=== PATIENT | female | born 1960 | race Caucasian/White ===

== ENCOUNTER 2024-07-07 00:57 | Day surgery (SDC) | payer BC, SELFPAY ==
[2024-06-27 13:28] VITALS: BMI 25.2
--- OUTSIDE RECORDS SUMMARY | 2024-07-07 01:00 | XMS_ITS | Clinical Summary ---
Author Organization [facility] Address [address] [place] [phone] Care Team Providers Care Regional Account Director Name Role Phone Manuelito Delgadillo MD Primary Care Provider [phone] Allergies No known active allergies Medications losartan (COZAAR) 100 mg tabletIndicatio ns:hypertension Take 1 tablet (100 mg total) by mouth nightly 4 8 Active multivitamin capsuleIndicati ons:Vitamin Deficiency Prevention Take 1 capsule by mouth nightly Active rosuvastatin (CRESTOR) 10 mg tabletIndicatio ns:hyperlipidem ia Take 1 tablet (10 mg total) by mouth nightly 3 Active timolol (TIMOPTIC) 0.5 % ophthalmic solution Administer 1 drop into both eyes 2 (two) times a day 5 Active brimonidine (ALPHAGAN) 0.2 % ophthalmic solution Administer 1 drop into the left eye 2 (two) times a day 5 mL 11 5 12/11/19 25 Active Hospital, Clinic, or Other Facility Administered Medication Ordered Dose Route Frequency Start Date End Date Status aflibercept syringe (EYLEA HD) 8 mg/0.07 mL intra-ocular injection 8 mgIndications:Left retinal detachment 8 mg One-Time Injection 07/01/2024 07/01/2024 Ended Active Problems Problem Noted Date Diagnosed Date Neovascular glaucoma of left eye, indeterminate stage 07/02/2024 Assessment & Plan (07/02/2024 10:51 AM CDT): Likely from retinal ischemia from RD. Will proceed with antiVEGF again today Left retinal detachment 01/16/2024 Assessment & Plan (07/01/2024 2:40 PM CDT): s/p PPV/EL/FAx/gas left eye for RRD OS. Re-detached with temporal PVR with subretinal bands Now s/p SBP/PPV/MP/EL/FAx/MTX inj/1000cs oil 03/20/24 C/b NVI and IOP issues in the left eye. Improved with antiVEGF and topical drops. Today NVI persists will plan for repeat MOSHE OS. For now will continue IOP lowering drops Assessment & Plan (06/13/2024 1:18 PM CONSTRUCTION RECRUITER): s/p PPV/EL/FAx/gas left eye for RRD OS. Re-detached with temporal PVR with subretinal bands Now s/p SBP/PPV/MP/EL/FAx/MTX inj/1000cs oil 03/20/24 Here for IOP check following new NVI last visit. Improved with antiVEGF and timolol but will add brimonidine BID OS as well. Assessment & Plan (06/04/2024 12:41 PM CONSTRUCTION RECRUITER): s/p PPV/EL/FAx/gas left eye for RRD OS. Re-detached with temporal PVR with subretinal bands Now s/p SBP/PPV/MP/EL/FAx/MTX inj/1000cs oil 03/20/24 Good buckle effect; attached with some PVR membranes still but remains flat. IOP elevated with diffuse NVI today likely from chronic ischemia from RRD. Will plan for RODRIGUEZ OS today. Will have her use timolol BID in both eyes (just using once a day in the right) and see someone locally in 1 week for IOP check and retina in 4 weeks if doing well. Assessment & Plan (04/23/2024 1:25 PM CONSTRUCTION RECRUITER): s/p PPV/EL/FAx/gas left eye for RRD OS. Re-detached with temporal PVR with subretinal bands Now s/p SBP/PPV/MP/EL/FAx/MTX inj/1000cs oil 03/20/24 Doing well today. Good buckle effect; attached with some PVR membranes still but remains flat. Remain off drops. Positioning: avoid flat face up Return precautions discussed. RTC 6-8 weeks for DFE OS, OCT mac OS Assessment & Plan (03/26/2024 11:14 AM CONSTRUCTION RECRUITER): s/p PPV/EL/FAx/gas left eye for RRD OS. Re-detached with temporal PVR with subretinal bands Now s/p SBP/PPV/MP/EL/FAx/MTX inj/1000cs oil 03/20/24 Doing well today. Good buckle effect Stop abx drop, PF BID until out Positioning: avoid flat face up Return precautions discussed. RTC 3-4 weeks for DFE OS Assessment & Plan (03/21/2024 10:12 AM CONSTRUCTION RECRUITER): s/p PPV/EL/FAx/gas left eye for RRD OS. Re-detached with temporal PVR with subretinal bands Now s/p SBP/PPV/MP/EL/FAx/MTX inj/1000cs oil 03/20/24 Doing well today. PF/moxi QID OS Face down Return precautions discussed. RTC next week for DFE OS Assessment & Plan (03/10/2024 3:00 PM CONSTRUCTION RECRUITER): POW6 s/p PPV/EL/FAx/gas left eye for RRD OS. Previously had 360 PRP (by Dr. Muñoz). Today with some temporal PVR and stretch hole in the left eye. We discussed guarded visual prognosis. Will plan for surgery as below: PPV/MP/EL/FAx/likely SOi left eye 120 min A. Barraza/Harjeet She has some posterior PVR but discussed possible SBP and will re-evaluate day of surgery. She is pseudophakic as well. Assessment & Plan (02/25/2024 12:52 PM CONSTRUCTION RECRUITER): 39 days (01/17/2024) status post Vitrectomy - 25 Gauge - Left, Endolaser - Intraocular - Left, and Exchange Gas Fluid - Left. for mac-on RRD Intra-op findings with posterior vitreous insertion. Inferior tear near prior laser, two SN tears. Doing well. Will stop PF OS. Continue timolol OD. Return to clinic in 2 months. Signs and symptoms of retinal detachment, tears and endophthalmitis, elevated pressure reviewed with patient. Post Op Position: no longer necessary Altitude precautions were reviewed with patient. Ok to resume normal activity level Assessment & Plan (01/23/2024 1:45 PM CDT): 6 days (01/17/2024) status post Vitrectomy - 25 Gauge - Left, Endolaser - Intraocular - Left, and Exchange Gas Fluid - Left. for mac-on RRD Intra-op findings with posterior vitreous insertion. Inferior tear near prior laser, two SN tears. Doing well. Stop Tobramycin and Taper pred forte (PF) by reducing it by one drop a day each week Return to clinic in one month. Signs and symptoms of retinal detachment, tears and endophthalmitis, elevated pressure reviewed with patient. Post Op Position: no longer necessary Altitude precautions were reviewed with patient. Ok to resume normal activity level Assessment & Plan (01/18/2024 9:10 AM CDT): 1 days (01/17/2024) status post Vitrectomy - 25 Gauge - Left, Endolaser - Intraocular - Left, and Exchange Gas Fluid - Left. for mac-on RRD Intra-op findings with posterior vitreous insertion. Inferior tear near prior laser, two SN tears. Doing well. Shield operated eye, Tobramycin 4x/day, and Predforte 4x/day Return to clinic in one week. Signs and symptoms of retinal detachment, tears and endophthalmitis, elevated pressure reviewed with patient. Post Op Position: Face down or left side down Altitude precautions were reviewed with patient. No strenuous activity. Assessment & Plan (01/16/2024 12:36 PM CDT): Hx of prior RRD OD, now with macula-involving, fovea sparing RRD OS. Pseudophakic. Discussed r/b/a of surgery and will plan for: PPV/EL/FAx/gas versus oil, left eye 120 min MAC Will plan for surgery tomorrow. Right retinal detachment 01/16/2024 Assessment & Plan (01/16/2024 12:38 PM CDT): Repaired 3 years prior. Has had OHTN it sounds like recently. For now, will start her on timolol BID OD Multinodular goiter 05/08/2017 Assessment & Plan (06/13/2022 1:10 PM CONSTRUCTION RECRUITER): Thyroid ultrasound performed today See report Follow-up p.r.n. Assessment & Plan (11/06/2017 12:06 PM CDT): Ultrasound performed ( see report ) Follow up in a year. Assessment & Plan (05/08/2017 4:24 PM CONSTRUCTION RECRUITER): Ultrasound repeated See report Repeat Ultrasound / FNA in 6 m Thyroid nodule 10/10/2016 Assessment & Plan (12/17/2018 4:56 PM CDT): Enlargement of the right dominant nodule as per ultrasound done today FNA repeated recommended and performed If negative, will follow-up in 2 years If positive will refer for thyroidectomy Assessment & Plan (10/10/2016 5:04 PM CDT): Thyroid ultrasound FNA biopsy of right upper lobe Check TSH Encounters Date Type Department Care Team Description 07/02/2024 Telephone [facility] [address] [place] [phone] Marii John MD PhD Pre Cert (2024 Pre-Cert/Assistance Program (Inj)) 07/01/2024 1:10 PM CDT Office Visit [facility] [address] [place] [phone] Left retinal detachment (Primary Dx); Neovascular glaucoma of left eye, indeterminate stage 06/13/2024 12:40 PM CONSTRUCTION RECRUITER Office Visit [facility] [address] [place] [phone] Left retinal detachment (Primary Dx) 06/09/2024 Telephone [facility] [address] [place], [place] [phone] Sammy Barraza MD Scheduling Question 06/04/2024 12:00 PM CONSTRUCTION RECRUITER Office Visit [facility] [address] [phone] Left retinal detachment (Primary Dx) 04/23/2024 12:50 PM CONSTRUCTION RECRUITER Office Visit [facility] [address] [phone] Left retinal detachment (Primary Dx) from Last 3 Months Immunizations Immunization Administration Dates Next Due Influenza, Quadrivalent, Spl it, Intramuscular 03/05/2019 Influenza, Quadrivalent, Spl it, Preservative Free, Intramuscular 01/18/2023,02/06/2022,01/30/2020,02/20 Tdap 10/18/2018 Surgical History Surgery Date Site/Laterality Comments VITRECTOMY 01/17/2024 Left PPV/EL/FGE COLONOSCOPY last one 10/23/2018 VITRECTOMY 02/09/2021 Right retina detachment CATARACT EXTRACTION W/ INTRAOCULAR LENS IMPLANT 08/14/2022 - 09/13/2022 Bilateral MELANOMA RESECTION 04/16/2011 - 04/15/2012 Left SECTION x3, 1986, 1988, 1997 VITRECTOMY 03/20/2024 Left SBP/PPV/EL/FGE/methoxate inj Medical History Medical History Date Comments Hx Other Medical Not Claustropho bic; Comments: GFC 01/15/2014 - Hx Other Medical Malignant melan cassie, left leg , stage IA Retinal detachment Cataract Family History Medical History Relation Name Comments Thyroid disease Mother Thyroid diso rder; Relation Name Status Comments Mother Social History Tobacco Use Types Packs/Day Years Used Date Smoking Tobacco: Never Passive Smoke Exposure: Past Smokeless Tobacco: Never Tobacco Cessation:Counseling Given: Not Answered Alcohol Use Standard Drinks/Week Comments Yes 0 (1 standard drink = 0.6 oz pur e alcohol) AUDIT-C Answer Date Recorded Q1: How often do you have a drink containing alc ohol? 2-4 times a month 03/20/2024 Q2: How many drinks containi ng alcohol do you have on a typical day when you are drinking? 3 or 4 03/20/2024 Q3: How often do you have si x or more drinks on one occasion? Never 03/20/2024 PHQ-2 Answer Date Recorded PHQ-2 Score 0 12/17/2018 Personal Safety Answer Date Recorded Have you ever been in or are you currently in a harmful physical or emotional relationship or is someone making you feel afraid or unsafe? Denies 03/20/2024 Comments Unknown Sex and Gender Information Value Date Recorded Sex Assigned at Not on file Legal Sex Female 3:26 AM CONSTRUCTION RECRUITER Gender Identity Not on file Sexual Orientation Not on file Obstetrics History Last Filed Vital Signs Vital Sign Reading Time Taken Comments Blood Pressure 125/95 03/20/2024 12:00 PM CONSTRUCTION RECRUITER Pulse 79 03/20/2024 12:10 PM CONSTRUCTION RECRUITER Temperature 36.1 C (97 F) 03/20/2024 11:55 AM CONSTRUCTION RECRUITER Respiratory Rate 18 03/20/2024 12:10 PM CONSTRUCTION RECRUITER Oxygen Saturation 96% 03/20/2024 12:10 PM CONSTRUCTION RECRUITER Inhaled Oxygen Concentration - - Weight 69.4 kg (153 lb) 03/20/2024 8:14 AM CONSTRUCTION RECRUITER Height 167.6 cm (5' 6 ) 03/20/2024 8:14 AM CONSTRUCTION RECRUITER Body Mass Index 24.69 03/20/2024 8:14 AM CONSTRUCTION RECRUITER Plan of Treatment Health Maintenance Due Date Last Done Comments Breast Cancer Screening-Mammogram 1960 Cervical Cancer Screening 1960 Colon Cancer Screening-Colonoscopy 1960 Hepatitis C Screening 1960 Hepatitis B Screening 02/03/1978 Regular Well Visit/Exam 18-64 02/03/1978 Zoster Vaccine (1 of 2) 02/03/2010 Depression Screening 12/18/2019 12/17/2018, 11/06/2017, 05/08/2017, Additional history exists Covid-19 Vaccine ( season) 2023 04/18/2021, 06/20/2020 Influenza Vaccine (#1) 2023 3, 02/06/2022, 01/30/2020, Additional history exists DTaP/Tdap/Td Vaccine (2 - Td or Tdap) 10/18/2028 10/18/2018 Pneumococcal vaccine <65 Aged Out No longer eligible based on patient's age to complete this topic Medical Devices Implanted Type Area Plasma Processor Device Identifier Shelf Expiration Date Model / Serial / Lot [employer] 125x3.5x.75mm Style 41 Strip Scleral Silicone 92-09 - S0 - [id number] Implanted:Qty: 1 on 03/20/2024 by Juan Cosby MD PhD at [facility] Other - see comments Left: Eye [employer] 05/16/2028 92-09 / 0 / [id number] Description:Soaked in Cefazo freddy / BSS see medication entry [employer] Style 72 Buckling Round Sleeve Scleral Silicone 92-30 - S0 - [id number] Implanted:Qty: 1 on 03/20/2024 by Juan Cosby MD PhD at [facility] Other - see comments Left: Eye [employer] 04/15/2027 92-30 / 0 / [id number] Description:Soaked in Cefazo freddy / BSS see medication entry Procedures Procedure Name Priority Date/Time Associated Diagnosis Comments OCT, RETINA - OS - LEFT EYE Routine 07/01/2024 2:40 PM CDT Left retinal detachment INTRAVITREAL INJECTION, PHARMACOLOGIC AGENT - OS - LEFT EYE Routine 07/01/2024 2:39 PM CDT Left retinal detachment INTRAVITREAL INJECTION, PHARMACOLOGIC AGENT - OS - LEFT EYE Routine 06/04/2024 12:44 PM CONSTRUCTION RECRUITER Left retinal detachment OCT, RETINA - OU - BOTH EYES Routine 06/04/2024 12:16 PM CONSTRUCTION RECRUITER Left retinal detachment OCT, RETINA - OU - BOTH EYES Routine 04/23/2024 1:20 PM CONSTRUCTION RECRUITER Left retinal detachment from Last 3 Months Results * OCT, Retina - OS - Left Eye (07/01/2024 2:40 PM CDT) Anatomical Region Laterality Modality Head Optical Coherenc e Tomography Narrative 07/01/2024 2:40 PM CDT Quality was good. Scan locations included subfoveal. Progression has been stable. Notes Irregular retina, flat us Sammy Barraza MD OPHTH TOMOGRAPHY Final Res ult * Intravitreal Injection, Pharmacologic Agent - OS - Left Eye (07/01/2024 2:39 PM CDT) Anatomical Region Laterality Modality Head Other Narrative 07/01/2024 2:39 PM CDT Time Out Informed consent was obtained after all risks, benefits and alternatives were explained to the patient. The patient understood, agreed and wished to proceed. Timeout was completed verifying the patient, procedure, laterality and allergies. Anesthesia Subconjunctival anesthesia was used. Anesthetic medications included Lidocaine 2%. The anesthesia lot number is [id number]. The expiration date is 12/15/2024. The manufacture of the medication is [employer]. Intravitreal Injection, Pharmacologic Agent Preparation included 5% betadine to ocular surface. A 30 gauge needle was used. Pharmaceutical Medication: 8 mg aflibercept syringe 8 mg/0.07 mL Route: intravitreal, Site: Left Eye [facility]: [id number], Lot: [id number], Expiration date: 07/14/2024 The medication administered today was not supplied by the patient or insurance. The medication administered today was a sample. Post-op Post injection exam found visual acuity is at least hand motion. the patient tolerated the procedure. there were no complications during today's treatment. The patient received written and verbal post procedure care education. Post injection medications were not given. The attending physician was present for the entire procedure. Notes Eylea HD OS (C) Sammy Barraza MD OPHTH CLINIC PROCEDURES Fi nal Result * Intravitreal Injection, Pharmacologic Agent - OS - Left Eye (06/04/2024 12:44 PM CONSTRUCTION RECRUITER) Anatomical Region Laterality Modality Head Other Narrative 06/04/2024 12:44 PM CONSTRUCTION RECRUITER Time Out Informed consent was obtained after all risks, benefits and alternatives were explained to the patient. The patient understood, agreed and wished to proceed. Timeout was completed verifying the patient, procedure, laterality and allergies. Anesthesia Subconjunctival anesthesia was used. Anesthetic medications included Lidocaine 2%. The anesthesia lot number is [id number]. The expiration date is 12/15/2024. The manufacture of the medication is [employer]. Intravitreal Injection, Pharmacologic Agent Preparation included 5% betadine to ocular surface. A 30 gauge needle was used. Pharmaceutical Medication: 1.25 mg bevacizumab syringe 2.75 mg/0.11 mL Route: intravitreal LEFT, Site: Left Eye [facility]: [id number], Lot: [id number], Expiration date: 07/15/2024 The medication administered today was not supplied by the patient or insurance. The medication administered today was not a sample. Post-op Post injection exam found visual acuity is at least hand motion. the patient tolerated the procedure. there were no complications during today's treatment. The patient received written and verbal post procedure care education. Post injection medications were not given. The attending physician was present for the entire procedure. Notes Avastin OS (C) Sammy Barraza MD OPHTH CLINIC PROCEDURES Fi nal Result * OCT, Retina - OU - Both Eyes (06/04/2024 12:16 PM CONSTRUCTION RECRUITER) Anatomical Region Laterality Modality Head Optical Coherenc e Tomography Narrative 06/04/2024 12:16 PM CONSTRUCTION RECRUITER Right Eye Quality was good. Scan locations included subfoveal. Left Eye Quality was good. Scan locations included subfoveal. Notes Right eye: wnl Left eye: disorganized retina, stable thickness Sammy Barraza MD OPHTH TOMOGRAPHY Final Res ult * OCT, Retina - OU - Both Eyes (04/23/2024 1:20 PM CONSTRUCTION RECRUITER) Anatomical Region Laterality Modality Head Optical Coherenc e Tomography Narrative 04/23/2024 1:20 PM CONSTRUCTION RECRUITER Right Eye Quality was good. Scan locations included subfoveal. Left Eye Quality was good. Scan locations included subfoveal. Notes Right eye: wnl Left eye: disorganized retina, IRF Sammy Barraza MD OPHTH TOMOGRAPHY Final Res ult from Last 3 Months Insurance [facility] [address] [id number] [employer] [facility] [place] [id number] [employer] ACCESS [place] Care Teams Regional Account Director Relationship Specialty Start Date End Date Manuelito Delgadillo MD [address] [place] [id number] PCP - General 01/15/14
--- OUTSIDE RECORDS SUMMARY | 2024-07-07 01:00 | XMS_ITS | Clinical Summary ---
Author Organization [facility] Address [address] [place] [id number] Care Team Providers Care Mortgage Processing Clerk Name Role Phone Manuelito Delgadillo MD Primary Care Provider [phone] Social History Tobacco Use Types Packs/Day Years Used Date Smoking Tobacco: Never Assessed Comments Unknown Sex and Gender Information Value Date Recorded Sex Assigned at Not on file Legal Sex Female 6:57 PM CDT Gender Identity Not on file Sexual Orientation Not on file Plan of Treatment Health Maintenance Due Date Last Done Comments Cervical Cancer Screening Pa p Smear (Age 30 to 64) Every 3 Years 1960 Colorectal Cancer Screening Colonoscopy (10 Years) 1960 Annual Physical 02/03/1963 Hepatitis C 02/03/1978 DTaP, Tdap and Td Vaccines ( 1 - Tdap) 02/03/1979 Cervical Cancer Screening Pa p with HPV Testing (Age 30 to 64) Every 5 Years 02/03/1990 Cervical Cancer Screening with HPV 02/03/1990 Mammogram Screening 2000 Zoster Vaccines (1 of 2) 02/03/2010 COVID-19 Vaccine ( - 2023-2 5 season) 2023 Influenza Adult (#1) 2024 RSV Immunization or 60+ Years (1 - 1-dose 75+ series) 02/03/2035 Meningococcal B Vaccine Aged Out No l onger eligible based on patient's age to complete this topic Meningococcal Vaccine Aged Out No naila radha eligible based on patient's age to complete this topic Pneumococcal Vaccine: Pediat rics (0 to 5 Years) and At-Risk Patients (6 to 64 Years) Aged Out No longer eligible b ased on patient's age to complete this topic RSV Immunizations Under 20 Months Aged Out No longer eligible based on patient's age to complete this topic Care Teams Mortgage Processing Clerk Relationship Specialty Start Date End Date Manuelito Delgadillo MD [address] [place] [phone] PCP - General INTERNAL MEDICINE 10/03/18
--- OUTSIDE RECORDS SUMMARY | 2024-07-07 01:00 | XMS_ITS | Referral Summary ---
Author Organization [facility] Address [address] [place] [address] Care Team Providers Care Steam Heating Installer Name Role Phone Manuelito Delgadillo MD Primary Care Provider [phone] Encounters Date Type Department Care Team Description 07/02/2024 Telephone [facility] Ophthalmology [address] [place] [phone] Marii John MD PhD Pre Cert (2024 Pre-Cert/Assistance Program (Inj)) 07/01/2024 1:10 PM CDT Office Visit [facility] Ophthalmology [address] [place] [phone] Left retinal detachment (Primary Dx); Neovascular glaucoma of left eye, indeterminate stage 06/13/2024 12:40 PM TEAM MANAGER Office Visit [facility] Ophthalmology [address] [place] [phone] Left retinal detachment (Primary Dx) 06/09/2024 Telephone [facility] Ophthalmology [address] [place] [address] Sammy Barraza MD Scheduling Question 06/04/2024 12:00 PM TEAM MANAGER Office Visit [facility] Ophthalmology [address] [place] [phone] Left retinal detachment (Primary Dx) 04/23/2024 12:50 PM TEAM MANAGER Office Visit [facility] Ophthalmology [address] [place] [phone] Left retinal detachment (Primary Dx) from Last 3 Months Allergies No known active allergies Medications losartan [...] drops Assessment & Plan (06/13/2024 1:18 PM TEAM MANAGER): s/p PPV/EL/FAx/gas left eye for RRD OS. Re-detached with temporal PVR with subretinal bands Now s/p SBP/PPV/MP/EL/FAx/MTX inj/1000cs oil 03/20/24 Here for IOP check following new NVI last visit. Improved with antiVEGF and timolol but will add brimonidine BID OS as well. Assessment & Plan (06/04/2024 12:41 PM TEAM MANAGER): s/p PPV/EL/FAx/gas left eye for RRD OS. [...] well. Assessment & Plan (04/23/2024 1:25 PM TEAM MANAGER): s/p PPV/EL/FAx/gas left eye for RRD OS. Re-detached with temporal PVR with subretinal bands Now s/p SBP/PPV/MP/EL/FAx/MTX inj/1000cs oil 03/20/24 Doing well today. Good buckle effect; attached with some PVR membranes still but remains flat. Remain off drops. Positioning: avoid flat face up Return precautions discussed. RTC 6-8 weeks for DFE OS, OCT mac OS Assessment & Plan (03/26/2024 11:14 AM TEAM MANAGER): s/p PPV/EL/FAx/gas left eye for RRD OS. Re-detached with temporal PVR with subretinal bands Now s/p SBP/PPV/MP/EL/FAx/MTX inj/1000cs oil 03/20/24 Doing well today. Good buckle effect Stop abx drop, PF BID until out Positioning: avoid flat face up Return precautions discussed. RTC 3-4 weeks for DFE OS Assessment & Plan (03/21/2024 10:12 AM TEAM MANAGER): s/p PPV/EL/FAx/gas left eye for RRD OS. Re-detached with temporal PVR with subretinal bands Now s/p SBP/PPV/MP/EL/FAx/MTX inj/1000cs oil 03/20/24 Doing well today. PF/moxi QID OS Face down Return precautions discussed. RTC next week for DFE OS Assessment & Plan (03/10/2024 3:00 PM TEAM MANAGER): POW6 s/p PPV/EL/FAx/gas left eye for RRD OS. Previously had 360 PRP (by Dr. Muñoz). Today with some temporal PVR and stretch hole in the left eye. We discussed guarded visual prognosis. Will plan for surgery as below: PPV/MP/EL/FAx/likely SOi left eye 120 min A. Barraza/Aptchris She has some posterior PVR but discussed possible SBP and will re-evaluate day of surgery. She is pseudophakic as well. Assessment & Plan (02/25/2024 12:52 PM TEAM MANAGER): 39 days (01/17/2024) status post Vitrectomy - [...] 05/08/2017 Assessment & Plan (06/13/2022 1:10 PM TEAM MANAGER): Thyroid ultrasound performed today See report Follow-up p.r.n. Assessment & Plan (11/06/2017 12:06 PM CDT): Ultrasound performed ( see report ) Follow up in a year. Assessment & Plan (05/08/2017 4:24 PM TEAM MANAGER): Ultrasound repeated See report Repeat Ultrasound / [...] biopsy of right upper lobe Check TSH Immunizations Immunization Administration Dates Next Due Influenza, Quadrivalent, Spl it, Intramuscular 03/05/2019 Influenza, Quadrivalent, Spl it, Preservative Free, Intramuscular 01/18/2023,02/06/2022,01/30/2020,02/20 Tdap 10/18/2018 Social History Tobacco Use Types Packs/Day Years [...] on file Legal Sex Female 3:26 AM TEAM MANAGER Gender Identity Not on file Sexual Orientation Not on file Last Filed Vital Signs Vital Sign Reading Time Taken Comments Blood Pressure 125/95 03/20/2024 12:00 PM TEAM MANAGER Pulse 79 03/20/2024 12:10 PM TEAM MANAGER Temperature 36.1 C (97 F) 03/20/2024 11:55 AM TEAM MANAGER Respiratory Rate 18 03/20/2024 12:10 PM TEAM MANAGER Oxygen Saturation 96% 03/20/2024 12:10 PM TEAM MANAGER Inhaled Oxygen Concentration - - Weight 69.4 kg (153 lb) 03/20/2024 8:14 AM TEAM MANAGER Height 167.6 cm (5' 6 ) 03/20/2024 8:14 AM TEAM MANAGER Body Mass Index 24.69 03/20/2024 8:14 AM TEAM MANAGER Plan of Treatment Not on file Medical Devices Implanted Type Area Fretted Instruments Inspector Device Identifier Shelf Expiration Date Model / Serial / Lot Prydeinig Ophthalmic [employer] 125x3.5x.75mm Style 41 Strip Scleral Silicone 92-09 - S0 - [id number] Implanted:Qty: 1 on 03/20/2024 by Juan Cosby MD PhD at [facility] Other - see comments Left: Eye Prydeinig Ophthal[employer] 05/16/2028 92-09 / 0 / [id number] Description:Soaked in Cefazo freddy / BSS see medication entry Prydeinig Ophthalmic [employer] Style 72 Buckling Round Sleeve Scleral Silicone 92-30 - S0 - [id number] Implanted:Qty: 1 on 03/20/2024 by Juan Cosby MD PhD at [facility] Other - see comments Left: Eye Prydeinig Ophthalmic [employer] 04/15/2027 92-30 / 0 / [id number] Description:Soaked in Cefazo freddy / BSS see medication entry Procedures Procedure Name Priority Date/Time Associated Diagnosis Comments OCT, RETINA - OS - LEFT EYE Routine 07/01/2024 2:40 PM CDT Left retinal detachment INTRAVITREAL INJECTION, PHARMACOLOGIC AGENT - OS - LEFT EYE Routine 07/01/2024 2:39 PM CDT Left retinal detachment INTRAVITREAL INJECTION, PHARMACOLOGIC AGENT - OS - LEFT EYE Routine 06/04/2024 12:44 PM TEAM MANAGER Left retinal detachment OCT, RETINA - OU - BOTH EYES Routine 06/04/2024 12:16 PM TEAM MANAGER Left retinal detachment OCT, RETINA - OU - BOTH EYES Routine 04/23/2024 1:20 PM TEAM MANAGER Left retinal detachment from Last 3 Months Results * OCT, Retina - OS - Left Eye (07/01/2024 2:40 PM CDT) Anatomical Region Laterality Modality Head Optical Coherenc e Tomography Narrative 07/01/2024 2:40 PM CDT Quality was good. Scan locations included subfoveal. Progression has been stable. Notes Irregular retina, flat Sammy Barraza MD OPHTH TOMOGRAPHY Final Res [...] Lidocaine 2%. The anesthesia lot number is [id number]. The expiration date is 12/15/2024. The manufacture of the medication is [employer]. Intravitreal Injection, Pharmacologic Agent Preparation included 5% betadine to ocular surface. A 30 gauge needle was used. Pharmaceutical Medication: 8 mg aflibercept syringe 8 mg/0.07 mL Route: intravitreal, Site: Left Eye [facility]: 50541-744-37, Lot: [id number], Expiration date: 07/14/2024 The medication administered today [...] Eylea HD OS (C) Sammy Barraza MD OPH CLINIC PROCEDURES Fi nal Result * Intravitreal Injection, Pharmacologic Agent - OS - Left Eye (06/04/2024 12:44 PM TEAM MANAGER) Anatomical Region Laterality Modality Head Other Narrative 06/04/2024 12:44 PM TEAM MANAGER Time Out Informed consent was obtained after all risks, benefits and alternatives were explained to the patient. The patient understood, agreed and wished to proceed. Timeout was completed verifying the patient, procedure, laterality and allergies. Anesthesia Subconjunctival anesthesia was used. Anesthetic medications included Lidocaine 2%. The anesthesia lot number is [id number]. The expiration date is 12/15/2024. The manufacture of the medication is [employer]. Intravitreal Injection, Pharmacologic Agent Preparation included 5% betadine to ocular surface. A 30 gauge needle was used. Pharmaceutical Medication: 1.25 mg bevacizumab syringe 2.75 mg/0.11 mL Route: intravitreal LEFT, Site: Left Eye [facility]: [id number], Lot: [id number], Expiration date: 07/15/2024 The medication administered today [...] OU - Both Eyes (06/04/2024 12:16 PM TEAM MANAGER) Anatomical Region Laterality Modality Head Optical Coherenc e Tomography Narrative 06/04/2024 12:16 PM TEAM MANAGER Right Eye Quality was good. Scan locations included subfoveal. Left Eye Quality was good. Scan locations included subfoveal. Notes Right eye: wnl Left eye: disorganized retina, stable thickness Sammy Barraza MD OPHTH TOMOGRAPHY Final Res ult * OCT, Retina - OU - Both Eyes (04/23/2024 1:20 PM TEAM MANAGER) Anatomical Region Laterality Modality Head Optical Coherenc e Tomography Narrative 04/23/2024 1:20 PM TEAM MANAGER Right Eye Quality was good. Scan locations included subfoveal. Left Eye Quality was good. Scan locations included subfoveal. Notes Right eye: wnl Left eye: disorganized retina, IRF us Sammy Barraza MD OPHTH TOMOGRAPHY Final Res ult from Last 3 Months Insurance Weeve ID Weeve ID General [employer] [facility] Care Teams Steam Heating Installer Relationship Specialty Start Date End Date Manuelito Delgadillo MD [address] [place] [id number] PCP - General 01/15/14
[2024-07-07 07:54] VITALS: BP 134/86; PULSE 106; RESP 18; TEMP 36.3; O2SAT 100
[2024-07-07] MEDS: LACTATED RINGERS 1,000 ML 150 ML IV CONT (08:05)
--- NOTE | 2024-07-07 08:16 | WPDANESEPPF ---
Anes - Initial Pre Proc Eval Procedure: Operation Date: 07/07/24 09:00 Proposed Procedures p Screening Colonoscopy - Gian Holland MD Date/Time: 07/07/24 08:16 Surgeon: Gian Holland MD Pre Op Diagnosis: screening malignant neoplasm colon Patient Data Age: 64 Gender: F Height: 1.68 m Weight: 70.7 kg Last Vital Signs Temp 97.4 F L 07/07/24 07:54 Pulse 106 H 07/07/24 07:54 Resp 18 07/07/24 07:54 BP 134/86 07/07/24 07:54 Pulse Ox 100 07/07/24 07:54 O2 Del Method Room Air 07/07/24 07:54 Allergies Allergy/AdvReac Type Severity Reaction Status Date / Time PROPOXYPHENE NAPSYLATE Allergy Severe SL SWELLING Uncoded 06/27/24 13:20 Home Medications ?Medication ?Instructions ?Recorded ?Confirmed ?Type montelukast 10 mg tablet 10 mg PO QHS #30 tabs 11/27/23 06/02/24 Rx (Singulair) losartan 100 mg tablet 100 mg PO DAILY #90 tabs 04/10/24 07/07/24 Rx rosuvastatin 10 mg tablet 10 mg PO DAILY #90 tabs 04/10/24 07/07/24 Rx amoxicillin 875 mg-potassium 1 tablet PO BID #20 tabs 06/02/24 06/02/24 Rx clavulanate 125 mg tablet methylprednisolone 4 mg tablets in See Rx Instructions PO PER PKG DIR 06/02/24 06/02/24 Rx a dose pack (Medrol (Demetrius)) #21 ea brimonidine 0.2 % eye drops 1 drp LEFT EYE DAILY 06/27/24 07/07/24 History multivitamin (Daily Multi-Vitamin 1 tablet PO DAILY 06/27/24 07/07/24 History tablet) timolol maleate 0.5 % eye drops 1 drp EACH EYE DAILY 06/27/24 07/07/24 History Patient hx anesthesia problems: none Family hx anesthesia problems: none Results Review: All pre-operative results and documents have been reviewed as part of the pre-operative evaluation. [facility] Past Medical History Medical History Hyperlipidemia Hypertension Melanoma Rectal tumor Surgical History Surgical History H/O colonoscopy 2019 repeat 5 years, Dr. Pike Family History Family History Father Carcinoma of colon Mother Hypertension Social History Social History Social History: 05/02/24 very confident with medical forms Smoking status: Never smoker Alcohol intake: current Substance use: never Substance use type: does not use Do You Feel Safe in your Home?: Yes Lack of Transportation: No Lack of Food: Never True Current Housing: I Have Housing Concerned About Future Housing: No Difficulty Paying Gas/Electric Bills: No Difficulty Paying for Meds: No Currently Unemployed: No Education: Bachelor's Degree Difficulty w/ Childcare or Family Care: No Living arrangements: with family Occupation/Education: occupation Gender identity (if verbalized by the patient): Female Sexual Orientation (if Verbalized by the Patient): Straight or Heterosexual Anes - Eval Final PreProcedure Day of Procedure 07/07/24 08:16 Patient weight: normal Lungs: normal air movement Airway: Mallampati scale class II Neurological: alert and oriented Last oral intake: >/= 8 hours ASA classification: II Emergent: no Anesthetic plan: proceed Anesthesia type and monitoring: general GIVS and standard monitoring Results Review: All pre-operative results and documents have been reviewed as part of the pre-operative evaluation. HTN, hyperlipidemia. Pt had detached retina and a bubble as treatment several months ago without any issues of recent. Informed Consent: The patient's anesthetic plan and its attendant risks and benefits were discussed with the patient/family/POA. Questions were solicited and answers provided to the satisfaction of the patient/family/POA.
--- NOTE | 2024-07-07 08:55 | PM.HPGS ---
History of Present Illness History of Present Illness Consent: Risks, benefits, and alternatives have been discussed and questions answered. Patient agrees to proceed with procedure. Chief complaint: screening malignant neoplasm colon Narrative: Casey Dunaway is a 64 year old female with last colonoscopy 6 years ago, father had colon cancer Review of Systems Review of Systems: All systems reviewed & are unremarkable except as noted in HPI and below PMFSH Past Medical History Medical History Hyperlipidemia Hypertension Melanoma Rectal tumor Surgical History Surgical History H/O colonoscopy 2019 repeat 5 years, Dr. Pike Family History Family History Father Carcinoma of colon Mother Hypertension Social History Social History Social History: 05/02/24 very confident with medical forms Smoking status: Never smoker Alcohol intake: current Substance use: never Substance use type: does not use Do You Feel Safe in your Home?: Yes Lack of Transportation: No Lack of Food: Never True Current Housing: I Have Housing Concerned About Future Housing: No Difficulty Paying Gas/Electric Bills: No Difficulty Paying for Meds: No Currently Unemployed: No Education: Bachelor's Degree Difficulty w/ Childcare or Family Care: No Living arrangements: with family Occupation/Education: occupation Gender identity (if verbalized by the patient): Female Sexual Orientation (if Verbalized by the Patient): Straight or Heterosexual Meds Home Medications and Allergies Home Medications ?Medication ?Instructions ?Recorded ?Confirmed ?Type montelukast 10 mg tablet 10 mg PO QHS #30 tabs 11/27/23 06/02/24 Rx (Singulair) losartan 100 mg tablet 100 mg PO DAILY #90 tabs 04/10/24 07/07/24 Rx rosuvastatin 10 mg tablet 10 mg PO DAILY #90 tabs 04/10/24 07/07/24 Rx amoxicillin 875 mg-potassium 1 tablet PO BID #20 tabs 06/02/24 06/02/24 Rx clavulanate 125 mg tablet methylprednisolone 4 mg tablets in See Rx Instructions PO PER PKG DIR 06/02/24 06/02/24 Rx a dose pack (Medrol (Demetrius)) #21 ea brimonidine 0.2 % eye drops 1 drp LEFT EYE DAILY 06/27/24 07/07/24 History multivitamin (Daily Multi-Vitamin 1 tablet PO DAILY 06/27/24 07/07/24 History tablet) timolol maleate 0.5 % eye drops 1 drp EACH EYE DAILY 06/27/24 07/07/24 History Allergies Allergy/AdvReac Type Severity Reaction Status Date / Time PROPOXYPHENE NAPSYLATE Allergy Severe SL SWELLING Uncoded 06/27/24 13:20 Vital Signs Vital Signs - 24 hr 07/07/24 07:54 Temperature 97.4 F L Pulse Rate 106 H Respiratory Rate 18 Blood Pressure 134/86 Pulse Oximetry 100 Oxygen Delivery Room Air Exam Const: General: comfortable and no acute distress HENMT: Face/Nose/Sinus: Normal nares present Eyes: General: appearance normal, both eyes and all related structures Neck: Neck: no JVD Resp: Auscultation: clear to auscultation bilaterally Cardio: Rate: regular rate Rhythm: regular rhythm GI: Inspection: non-distended GI Palp: Yes Soft to palpation Skin: General skin exam: normal color Neuro: General: gait normal Speech: normal speech Extrem: General: normal to inspection Psych: Mental Status: mental status grossly normal Assessment and Plan Assessment and plan (1) FH: colon cancer: Code(s): Z80.0 - Family history of malignant neoplasm of digestive organs Status: Acute Assessment and Plan: colonoscopy
[2024-07-07 09:16] VITALS: BP 107/69; PULSE 69; RESP 18; O2SAT 100
[2024-07-07 09:26] VITALS: BP 107/69; PULSE 62; RESP 14; O2SAT 100
[2024-07-07 09:36] VITALS: BP 110/71; PULSE 6; RESP 16; O2SAT 100
== END 2024-07-07 09:44 | disposition home or self-care (01) ==
PROVIDERS: PCP Nurse Practitioner Family; Referring Provider Nurse Practitioner Family; Visit Provider Internal Medicine Gastroenterology
PROC: 0DJD8ZZ Inspection of Lower Intestinal Tract, Via Natural or Artificial Opening Endoscopic (ICD-10-PCS; CPT 45378; principal; 2024-07-07 09:00)
DX: Z12.11 Encounter for screening for malignant neoplasm of colon (principal); K63.5 Polyp of colon; K64.8 Other hemorrhoids; Z80.0 Family history of malignant neoplasm of digestive organs
CPT/HCPCS: 45380; 88305; J2704; J7120